=== PATIENT | male | born 1955 | race Caucasian/White ===

== ENCOUNTER 2023-04-07 08:22 | Outpatient (OUT) | payer MEDICARE, OTHER, SELFPAY ==
--- NOTE | 2023-04-07 | ECG_ITS ---
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
== END 2023-04-07 08:23 | disposition home or self-care (01) ==
LOC: CARD 08:22
PROVIDERS: PCP Nurse Practitioner Family; Visit Provider Nurse Practitioner Family
DX: Z01.818 Encounter for other preprocedural examination (principal)
CPT/HCPCS: 93005

== ENCOUNTER 2023-04-11 14:50 | Outpatient (OUT) | payer MEDICARE, OTHER, SELFPAY ==
--- NOTE | 2023-04-11 15:06 | XR_ITS ---
The [address] [address] Patient Name: MICHAEL GUTIERREZ MRN: [id number] date: 1955 Sex: M Assigned Patient Location: RAD Current Patient Location: RAD Accession/Order Number: [id number] Exam Date: 04/11/2023 15:08 Report Date: 04/11/2023 15:35 At the request of: ZOFIA LU Procedure: XR chest 2V EXAM: XR chest 2V HISTORY: Pre-operative clearance Z01.818 COMPARISON: None. TECHNIQUE: Upright PA and lateral chest x-ray FINDINGS: The heart is not enlarged and the vasculature is not distended. No acute infiltrate, effusion or pneumothorax is identified. There is evidence of previous granulomatous disease on the left side. Degenerative changes are seen in the spine. XR/XR chest 2V IMPRESSION: No acute infiltrate or evidence of cardiac decompensation. Chronic changes are noted. Direct comparison with a previous study may be helpful in determining the chronicity of these findings. Electronically authenticated by: ANAYELI LEDESMA Date: 04/11/2023 15:35
== END 2023-04-11 14:51 | disposition home or self-care (01) ==
LOC: RAD 14:56
PROVIDERS: PCP Nurse Practitioner Family; Visit Provider Nurse Practitioner Family
DX: Z01.810 Encounter for preprocedural cardiovascular examination (principal)
CPT/HCPCS: 71046

== ENCOUNTER 2024-02-10 12:19 | Outpatient (RCR) | payer MEDICARE, OTHER, SELFPAY | END 2024-04-28 13:40 | disposition home or self-care (01) | LOC: PT 12:19 | PROVIDERS: PCP Nurse Practitioner Family; Visit Provider Nurse Practitioner Family | DX: G20.A1 Parkinson's disease without dyskinesia, without mention of fluctuations (principal); R26.89 Other abnormalities of gait and mobility | CPT/HCPCS: 97110; 97112; 97161; 97530 ==

== ENCOUNTER 2024-02-10 12:20 | Outpatient (RCR) | payer MEDICARE, OTHER, SELFPAY | END 2024-04-14 12:54 | disposition home or self-care (01) | LOC: ST 12:20 | PROVIDERS: PCP Nurse Practitioner Family; Visit Provider Nurse Practitioner Family | DX: G20.A1 Parkinson's disease without dyskinesia, without mention of fluctuations (principal); R13.10 Dysphagia, unspecified | CPT/HCPCS: 92526; 92610 ==